=== PATIENT | female | born 1980 | race Two or more races ===

== ENCOUNTER → 2022-02-13 | Outpatient (CLI) | payer OTHER ==
--- NOTE | 2022-02-13 16:23 | RAD ---
Exam: CT head without contrast Date: September 06, 2017 Indication: Acute posttraumatic headache. Comparisons: None Technique: CT of the head without intravenous contrast performed using contiguous axial imaging from the skull base to the vertex. Soft tissue and bone window algorithms were reviewed. The CT scan was acquired using radiation reduction techniques, such automated exposure control, adjustment of the mA and/or kV according to the patient's size and use of iterative reconstruction techniques. Findings: The ventricles, cortical sulci and cisterns are symmetric and appropriate in size. Neither mass, midline shift, extra-axial fluid collections, intracranial hemorrhage, nor acute or subacute is chemic changes are seen. The calvarium is intact. The visualized skull base is normal in appearance. The visualized paranasal sinuses and mastoid air cells are clear. The orbits and their contents are s ymmetric. Review of bone windows reveals no suspicious osseous abnormalities. Soft tissues are grossl y unremarkable. Impression: No evidence of acute intracranial process. Electronically signed by: Moy Page DO (02/13/2022 4:21 PM) [id number]
== END ==
LOC: CT 15:28
PROVIDERS: ATTEND Preventive Medicine Occupational Medicine
DX: G44.319 Acute post-traumatic headache, not intractable (principal)
CPT/HCPCS: 70450